=== PATIENT | female | born 1945 | race Caucasian/White ===

== ENCOUNTER → 2018-07-23 | Outpatient (REF) | payer MEDICARE ==
[~2018-07-23] MED LIST: AMLODIPINE10 MG PO; AZITHROMYCIN250 MG PO; CIPROFLOXACN500 MG PO; COZAAR50 MG OR; FLEXERIL PO; GLUCOPHAGE500 MG OR; HYDROCHLOROT25 MG OR; KETOROLAC60 MG/2 ML IM; LOPID600 MG OR; LORTAB 7.57.5 MG PO; LORTAB5 OR; NAPROSYN500 MG PO; NEXIUM40 M1 OR; OMEPRAZOLE20 MG OR; PRAVASTATIN20 MG PO; PROCARDIA XL30 MG OR; PROVENTIL0.083 % IN; ROCEPHIN 1 GM1 GM IM; ULTRAM50 M1 PO; ZOFRAN8 MG OR
[2018-07-23 09:25] LABS: HEMATOCRIT 40.7 % (37.0-47.0); HEMOGLOBIN 13.3 g/dl (12.0-16.0); IMMATURE GRANULOCYTES 0.3 % (0.0-5.0); MEAN CORPUSCULAR HGB 31.4 pG CALC (26.0-32.0); MEAN CORPUSCULAR HGB CONC 32.7 g/L CALC (32.0-36.0); NEUT# 4.9 thou/uL (2.00-7.15); RED BLOOD COUNT 4.24 mill/uL (4.20-5.60)
[2018-07-23 09:51] LABS: ALBUMIN 3.9 g/dL (3.2-5.0); ALKALINE PHOSPHATASE 82 u/l (38-126); ANION GAP 13 (6-22 (CALC)); BILIRUBIN, TOTAL 0.3 mg/dL (0.0-1.4); BUN 17 mg/dL (8-23); BUN/CREATININE RATIO 20 (12-20 (CALC)); CARBON DIOXIDE 26 mmol/l (22-30); CHLORIDE 109 mmol/l (95-108); CREATININE 0.9 mg/dL (0.5-1.0); GFR > 60 ML/MIN (>=60 (CALC)); GFR FOR AFR.AMER. > 60 ML/MIN (>=60 (CALC)); INTERNATIONAL NORMALIZED RATIO 0.9 RATIO (0.7-1.3); MAGNESIUM 1.7 mg/dL (1.6-2.3); PROTHROMBIN TIME 9.8 SECONDS (9.0-12.5); SGOT/AST 13 u/l (9-36); SODIUM 143 mmol/l (137-146); TOTAL PROTEIN 6.6 g/dL (6.3-8.2)
== END | disposition home or self-care (01) ==
LOC: LAB 07:43
PROVIDERS: ATTEND Internal Medicine Cardiovascular Disease
DX: I25.119 Atherosclerotic heart disease of native coronary artery with unspecified angina pectoris (principal); I10 Essential (primary) hypertension; R05 Cough; R09.89 Other specified symptoms and signs involving the circulatory and respiratory systems; E11.41 Type 2 diabetes mellitus with diabetic mononeuropathy; I25.5 Ischemic cardiomyopathy; E55.9 Vitamin D deficiency, unspecified; E78.00 Pure hypercholesterolemia, unspecified

== ENCOUNTER 2018-11-01 12:32 | Emergency (ER) | payer MEDICARE ==
[~2018-11-01] VITALS: Ht 161.3 cm; Wt 90.0 kg
[~2018-11-01 12:32] MED LIST changes: -HYDROCHLOROT25 MG OR; +HYDROCHLOROT25 MG PO; -OMEPRAZOLE20 MG OR; +OMEPRAZOLE20 MG PO
[2018-11-01] MEDS ORDERED: CARVEDILOL3.125 MG PO (13:59)
[2018-11-01] MEDS ORDERED: ENTRESTO 97-1031 TAB PO (13:59)
[2018-11-01] MEDS ORDERED: PRAVASTATIN20 MG PO (14:00)
[2018-11-01] MEDS ORDERED: METFORMIN500 MG PO (14:02)
[2018-11-01] MEDS ORDERED: OXYBUTYNIN5 M1 PO (14:02)
[2018-11-01] MEDS ORDERED: FISH OIL1 CAP PO (14:04)
[2018-11-01] MEDS ORDERED: VASCEPA1 GM PO (14:04)
[2018-11-01 14:56] LABS: HEMATOCRIT 43.5 % (37.0-47.0); HEMOGLOBIN 14.3 g/dl (12.0-16.0); IMMATURE GRANULOCYTES 0.4 % (0.0-5.0); MEAN CELL VOLUME 94.4 fL CALC (80.0-100.0); MEAN CORPUSCULAR HGB CONC 32.9 g/L CALC (32.0-36.0); NEUT# 6.59 thou/uL (2.00-7.15); RED BLOOD COUNT 4.61 mill/uL (4.20-5.60); RED CELL DISTRI WIDTH 12.5 % (11.5-15.5)
[2018-11-01 15:05] LABS: URINE BILIRUBIN - DIPSTICK NEGATIVE (NEGATIVE); URINE BLOOD DIPSTICK TRACE-LYSED (NEGATIVE); URINE COLOR YELLOW; URINE GLUCOSE - DIPSTICK NEGATIVE (NEGATIVE); URINE KETONE NEGATIVE (NEGATIVE); URINE NITRITE - DIPSTICK NEGATIVE (Negative); URINE PROTEIN - DIPSTICK TRACE mg/dL (NEG-TRACE); URINE UROBILINOGEN - DIPSTICK 0.2 E.U./dL (0.2)
[2018-11-01 15:09] LABS: URINE LEUK ESTERASE SMALL (NEGATIVE)
[2018-11-01 15:14] LABS: ALBUMIN 3.9 g/dL (3.2-5.0); ALKALINE PHOSPHATASE 70 u/l (38-126); ANION GAP 15 (6-22 (CALC)); BILIRUBIN, TOTAL 0.5 mg/dL (0.0-1.4); BUN 13 mg/dL (8-23); BUN/CREATININE RATIO 14 (12-20 (CALC)); CARBON DIOXIDE 24 mmol/l (22-30); CHLORIDE 105 mmol/l (95-108); CREATININE 0.9 mg/dL (0.5-1.0); GFR > 60 ML/MIN (>=60 (CALC)); GFR FOR AFR.AMER. > 60 ML/MIN (>=60 (CALC)); LIPASE 69 u/l (23-300); POTASSIUM 3.6 mmol/l (3.5-5.1); SGOT/AST 12 u/l (9-36); SODIUM 140 mmol/l (137-146); TOTAL PROTEIN 6.6 g/dL (6.3-8.2)
[2018-11-01 15:19] LABS: URINE RBC 0-2 RBC/hpf (0-5); URINE SQUAMOUS EPITHELIAL CELL FEW EPI/hpf (0-FEW)
[2018-11-01 18:22] VITALS: BP 127/76
[2018-11-01] MEDS ORDERED: KEFLEX500 M1 PO (18:37)
== END 2018-11-01 18:40 | disposition home or self-care (01) ==
LOC: ED 12:32
PROVIDERS: Emergency Medicine
DX: R10.11 Right upper quadrant pain (principal); R10.31 Right lower quadrant pain; I48.91 Unspecified atrial fibrillation; F17.210 Nicotine dependence, cigarettes, uncomplicated; I10 Essential (primary) hypertension; K21.9 Gastro-esophageal reflux disease without esophagitis; E11.9 Type 2 diabetes mellitus without complications; Z79.84 Long term (current) use of oral hypoglycemic drugs

== ENCOUNTER 2019-02-17 08:23 | Day surgery (SDC) | payer MEDICARE ==
[~2019-02-17] VITALS: Ht 165.1 cm; Wt 77.6 kg
[~2019-02-17 08:23] MED LIST changes: +B121000 MCG PO; +CARVEDILOL3.125 MG PO; +ENTRESTO 97-1031 TAB PO; +FISH OIL1 CAP PO; +GLUCOPHAGE500 MG PO; +KEFLEX500 M1 PO; +METFORMIN500 MG PO; +OXYBUTYNIN5 M1 PO; +TRIAMCINOLONE0.025 % EX; +VASCEPA1 GM PO; +VENTOLIN HFA IN
[2019-02-17 08:55] VITALS: BP 155/88
[2019-02-17] MEDS ORDERED: FISH OIL1000 MG PO (11:20)
[2019-02-18] MEDS ORDERED: LOPRESSOR 550 MG/TAB PO (10:17)
== END 2019-02-17 10:45 | disposition other institution (70) ==
LOC: ENDO 08:23
PROVIDERS: ATTEND Surgery
DX: R19.5 Other fecal abnormalities (principal); B37.0 Candidal stomatitis; Z53.8 Procedure and treatment not carried out for other reasons; I48.2 Chronic atrial fibrillation

== ENCOUNTER 2019-02-17 10:49 | Observation (INO) | payer MEDICARE ==
[~2019-02-17] VITALS: Ht 165.1 cm; Wt 77.3 kg
[2019-02-17] VITALS (17 sets, daily range): BP systolic 103–168; BP diastolic 47–98
--- NOTE | 2019-02-17 10:59 | NUR ---
PACU STRETCHER TO ER ROOM 10, TO BED
--- NOTE | 2019-02-17 11:08 | NUR ---
ADMINISTERED CARDIZEM 10MG SLOW IVP NO NOTABLE RHYTHM CHANGE. PT TOLERATED WELL. ASSISTED ONTO BEDPAN, OBTAINED CLEAR YELLOW URINE, IVF BOLUS INFUSING FROM OUTPATIENT.
[2019-02-17 11:18] LABS: HEMATOCRIT 45.7 % (37.0-47.0); HEMOGLOBIN 14.8 g/dl (12.0-16.0); IMMATURE GRANULOCYTES 0.3 % (0.0-5.0); MEAN CELL VOLUME 95.8 fL CALC (80.0-100.0); MEAN CORPUSCULAR HGB CONC 32.4 g/L CALC (32.0-36.0); NEUT# 5.75 thou/uL (2.00-7.15); RED BLOOD COUNT 4.77 mill/uL (4.20-5.60); RED CELL DISTRI WIDTH 13.1 % (11.5-15.5)
[2019-02-17] MEDS ORDERED: FISH OIL1000 MG PO (11:20)
--- NOTE | 2019-02-17 11:22 | NUR ---
HR 128 AFTER CARDIZEM 10MG SLOW IVP X2. DENIES CP OR SOB. BP 187/97. SKIN PWD. FAMILY AT BEDSIDE
[2019-02-17 12:05] LABS: ANION GAP 16 (6-22 (CALC)); BUN 12 mg/dL (8-23); BUN/CREATININE RATIO 18 (12-20 (CALC)); CARBON DIOXIDE 20 mmol/l (22-30); CHLORIDE 112 mmol/l (95-108); CREATININE 0.7 mg/dL (0.5-1.0); GFR > 60 ML/MIN (>=60 (CALC)); GFR FOR AFR.AMER. > 60 ML/MIN (>=60 (CALC)); POTASSIUM 3.9 mmol/l (3.5-5.1); SODIUM 144 mmol/l (137-146)
--- NOTE | 2019-02-17 12:11 | NUR ---
PT SITTING UP IN BED IN NO DISTRESS, VSS. ON CONT IV CARDIZEM GTT @15MCG/GR. FAMILY AT BEDSIDE.NO RESP DISTRESS OR SOB, DENIES CP
--- NOTE | 2019-02-17 12:33 | NUR ---
SBAR PRINTED TO FLOOR
--- NOTE | 2019-02-17 13:11 | NUR ---
PT RESTING RT SIDE LYING, PT DENIES CP OR SOB. AFIB RVR @101. CONTINUOUS CARDIAC MONITORING
--- NOTE | 2019-02-17 13:15 | NUR ---
REPORT CALLED TO JAKE HOLLAND RN ICU
--- NOTE | 2019-02-17 13:30 | NUR ---
PT TRANSPORTED TO ICU VIA STRETCHER ON TRIALS MANAGER IN NO DISTRESS
--- NOTE | 2019-02-17 13:45 | NUR ---
PT ADMITTED TO ICU BED 5 VIA STRECTHER FROM ER. PT ABLE TO STAND OFF STRETCHER AND AMBULATE TO BSC, CONTINENT OF 150 ML CLEAR YELLOW URINE AND SMALL LOOSE STOOL, THEN TRANSFERRED SELF INTO BED WITH STEADY GAIT, ALL MONITORING EQUIPMENT EXPLAINED PRIOR TO APPICATION, LUNGS ARE CLEAR WITH NO SOB OR DISTRESS NOTED, PT ADMITTED 1 PPD CIGERETTE SMOKER FOR 50+ YEARS, ABD SOFT AND BS ACTIVE WITH PT HAVING PREPPED FOR EGD AND COLONSCOPY LAST PM ( WAS HERE FOR THAT PROCEDURE THIS AM AND WHEN MONITOR ATTACHED PT FOUND TO BE IN AFIB WITH RVR SO PROCEDURE WAS CANCELLED AND PT WAS TAKEN TO ER) PT COMPLAINS OF SOME ABD TENDERNESS RELATED TO FREQUENT STOOLS LAST PM AFTER PREP. 20G IV ACCESS INTACT IN RFA WITH GOOD ASPIRATE NOTED AND CARDIZEM GTT INFUSING AT 15MG/HR (INITIATED IN ER) AND NS AT KVO, TELE READIN AFIB RATE 90-110'S BP STABLE PT SLIGHTLY FEBRILE WITH TEMP 99.2 TYMPANICALLY. SKIN IS WARM DRY AND INTACT WITH NO BREAKDOWN NOTED, PT STATES SHE HAS UPPER AND LOWER DENTURES BUT THAT THEY ARE AT HOME AND SHE DOESN'T HAVE TO HAVE THEM. COMFORT MEASURES PROVIDED AND ORIENTED TO ROOM AND UNIT, SAFETY MEASURES INTRODUCED, CALL SHINE WITHIN REACH, WILL CONTINUE TO MONITOR.
--- NOTE | 2019-02-17 15:30 | NUR ---
PT RESTING PROVIDED WITH MEAL AND TOLERATED INTAKE WELL, DENIES N/V, COMPLAINTS OF MILD HEADACHE, AND REQUESTING A NICOTINE PATCH. COMFORT MEASURES PROVIDED, WILL CONTINUE TO MONITOR.
--- NOTE | 2019-02-17 16:03 | NUR ---
PT CONVERTED TO SR WITH FREQUENT REGULAR PAC'S AND SOME PVC'S WELL, PT OFFERS NO COMPLAINTS.
--- NOTE | 2019-02-17 16:55 | NUR ---
R.T. AT BEDSIDE EKG COMPLETED FOR CONVERSION, WILL WEAN CARDIZEM TOLERATED.
--- NOTE | 2019-02-17 17:04 | NUR ---
VISITORS AT BEDSIDE, CARDIZEM GTT DECREASED WILL MONITOR TOLERANCE.
--- NOTE | 2019-02-17 17:45 | NUR ---
SET UP ASSIST PROVIDED FOR PM MEAL, PT UP SITTING ON EDGE OF BED INDEPENDENTLY, TOLERATED ACTIVITY WELL, CALL SHINE WITHIN REACH.
--- NOTE | 2019-02-17 18:20 | NUR ---
APETITE GOOD EAT 100% OF PM MEAL WITHOUT INCIDENT, TELE CONTINUES TO READ SR RATE IN THE 80'S WTH PAC/PVC'S, BP STABLE, WILL CONTINIE TO MONITOR.
--- NOTE | 2019-02-17 18:26 | NUR ---
CONTINUED WEANING OF CARDIZEM TOLERATED WELL, CALL SHINE WITHIN REACH, PT STATES HEADACHE MUCH IMPROVED SINCE TYLENOL ADMINSITRATION EARLIER, WILL CONTINUE TO MONITOR
--- NOTE | 2019-02-17 19:05 | NUR ---
awake. denies c/o. apprentice embalmer shows sinus rhythm pacs pvcs. #22 rfa. cardizem gtt infusing @ 5mg/hr ns infusing @ 20cchr. po fluids taken well. voids per bsc. fall precautions cont.
--- NOTE | 2019-02-17 22:00 | NUR ---
eyes closed. no distress. alarm security or surveillance monitor shows sinus rhythm pacs pvcs.
--- NOTE | 2019-02-17 22:15 | NUR ---
tylenol 650mg given per request for h/d.
[2019-02-18] VITALS (7 sets, daily range): BP systolic 153–185; BP diastolic 57–86
--- NOTE | 2019-02-18 00:01 | NUR ---
eyes closed. no acute distress.
--- NOTE | 2019-02-18 02:45 | NUR ---
tylenol 650mg po per request for h/a.
--- NOTE | 2019-02-18 04:55 | NUR ---
lab here. blood drawn.
[2019-02-18 05:25] LABS: ALBUMIN 4.2 g/dL (3.2-5.0); ALKALINE PHOSPHATASE 65 u/l (38-126); AMYLASE 44 u/l (30-110); ANION GAP 16 (6-22 (CALC)); BUN 15 mg/dL (8-23); BUN/CREATININE RATIO 21 (12-20 (CALC)); CARBON DIOXIDE 21 mmol/l (22-30); CHLORIDE 110 mmol/l (95-108); CREATININE 0.7 mg/dL (0.5-1.0); GFR > 60 ML/MIN (>=60 (CALC)); GFR FOR AFR.AMER. > 60 ML/MIN (>=60 (CALC)); LIPASE 138 u/l (23-300); MAGNESIUM 1.8 mg/dL (1.6-2.3); SGOT/AST 14 u/l (9-36); SODIUM 143 mmol/l (137-146); TOTAL PROTEIN 6.8 g/dL (6.3-8.2)
[2019-02-18 05:27] LABS: HEMATOCRIT 42.8 % (37.0-47.0); HEMOGLOBIN 13.8 g/dl (12.0-16.0); IMMATURE GRANULOCYTES 0.2 % (0.0-5.0); MEAN CELL VOLUME 95.3 fL CALC (80.0-100.0); MEAN CORPUSCULAR HGB 30.7 pG CALC (26.0-32.0); MEAN CORPUSCULAR HGB CONC 32.2 g/L CALC (32.0-36.0); NEUT# 4.09 thou/uL (2.00-7.15); RED BLOOD COUNT 4.49 mill/uL (4.20-5.60)
[2019-02-18 05:33] LABS: BILIRUBIN, TOTAL 0.6 mg/dL (0.0-1.4)
--- NOTE | 2019-02-18 07:15 | NUR ---
PT RESTING IN BED ALERT AND ORIENTED, COMPLAINTS OF CONTINUES HEADACHE, AM ASSESSMENT COMPLETED SEE INTERVENTIONS, TELE CONTINUES READING SR WITH PAC/PVC'S RATE IN THE 80'S B/P ELEVATED BUT PT STATES THAT "BETWEEN THE HEADACHE, NO CIGARETTES AND JUST BEING IN THE HOSPITAL, I'M NOT SUPRISED ITS HIGHER" COMFORT MEASURES PROVIDED, WILL MEDICATE FOR COMPLAINTS OF HEADACHE ORDERED. SAFETY MEASURES REINFORCED, CALL SHINE WITHIN REACH, WILL CONTINUE TO MONITOR.
--- NOTE | 2019-02-18 07:40 | NUR ---
MEDICTAED ORDERED, TOOK AM MEDICATIONS W/O INCIDENT, COMFORT MEASURES PROVIDED, WILL CONTINUE TO MONITOR.
--- NOTE | 2019-02-18 09:00 | NUR ---
PT RESTING IN BED, OFFERS NO NEW COMPLAINTS, TOLERATED AM MEAL WITHOUT INCIDENT, CALL SHINE WITHIN REACH, WILL CONTINUE TO MONITOR
--- NOTE | 2019-02-18 09:55 | NUR ---
IN TO SEE PATIENT, PLAN OF CARE DISCUSSED INCLUDING D/C AND INSTRUCTED PT TO FOLLOW UP WITH HER WARDSPERSON IN NEXT 1-2 WEEKS, PT VERBALIZES UNDERSTANDING.
[2019-02-18] MEDS ORDERED: LOPRESSOR 550 MG/TAB PO (10:17)
--- NOTE | 2019-02-18 10:38 | NUR ---
Discharge instructions given. Patient verbalizes understanding of same. Discharged in stable condition via Wheelchair to Home with family. All belongings sent with pt. HOME MEDICATION OF ENTRESTO SENT WITH PATIENT WELL.
== END 2019-02-18 10:37 | disposition home or self-care (01) ==
LOC: ED 10:49 → ED-I 12:00 → ED 12:31 → ICU 12:32
PROVIDERS: Family Medicine; ADMIT Internal Medicine Nephrology; ATTEND Internal Medicine Nephrology
DX: I48.0 Paroxysmal atrial fibrillation (principal); I10 Essential (primary) hypertension; E11.9 Type 2 diabetes mellitus without complications; J44.9 Chronic obstructive pulmonary disease, unspecified; K21.9 Gastro-esophageal reflux disease without esophagitis; I25.10 Atherosclerotic heart disease of native coronary artery without angina pectoris; F41.9 Anxiety disorder, unspecified; R32 Unspecified urinary incontinence; F17.200 Nicotine dependence, unspecified, uncomplicated; Z79.01 Long term (current) use of anticoagulants; Z79.84 Long term (current) use of oral hypoglycemic drugs
CPT/HCPCS: J1650

== ENCOUNTER 2021-12-03 11:37 | Emergency (ER) | payer MEDICARE ==
[~2021-12-03] VITALS: Ht 165.1 cm; Wt 78.0 kg
[2021-12-03] VITALS (16 sets, daily range): BP systolic 103–134; BP diastolic 55–76
[~2021-12-03 11:37] MED LIST changes: +FISH OIL1000 MG PO; +LOPRESSOR 550 MG/TAB PO
[2021-12-03] MEDS ORDERED: TIZANIDINE HYDRO4 M1 PO (12:10)
[2021-12-03] MEDS ORDERED: TRAMADOL HCL50 MG PO (12:10)
[2021-12-03] MEDS ORDERED: CLONAZEPAM1 MG PO (12:11)
[2021-12-03] MEDS ORDERED: BUPROPION150 M3 PO ×2 (12:11→12:13)
[2021-12-03] MEDS ORDERED: GABAPENTIN100 MG PO (12:11)
[2021-12-03] MEDS ORDERED: FLUOXETINE20 MG PO (12:12)
[2021-12-03] MEDS ORDERED: HYDROXYCHLOR200 M1 PO (12:12)
[2021-12-03] MEDS ORDERED: LISINOPRIL10 MG PO (12:13)
[2021-12-03] MEDS ORDERED: AMITRIPTYLINE H10 MG PO (12:14)
[2021-12-03 12:51] LABS: IMMATURE GRANULOCYTES 0.3 % (0.0-5.0); MEAN CELL VOLUME 97.3 fL CALC (80.0-100.0); MEAN CORPUSCULAR HGB 30.2 pG CALC (26.0-32.0); MEAN CORPUSCULAR HGB CONC 31.1 g/dL CAL (32.0-36.0); NEUT# 12.18 thou/uL (2.00-7.15); RED BLOOD COUNT 3.64 mill/uL (4.20-5.60); RED CELL DISTRI WIDTH 14.7 % (11.5-15.5)
[2021-12-03 12:59] LABS: HEMATOCRIT 35.4 % (37.0-47.0)
[2021-12-03 13:37] LABS: BILIRUBIN, TOTAL 0.3 mg/dL (0.0-1.4); CREATININE 1.9 mg/dL (0.5-1.0); POTASSIUM 4.5 mmol/l (3.5-5.1); TOTAL PROTEIN 6.2 g/dL (6.3-8.2)
[2021-12-03 14:41] LABS: INTERNATIONAL NORMALIZED RATIO 1.4 RATIO (0.7-1.3); PROTHROMBIN TIME 13.9 SECONDS (9.0-12.5)
[2021-12-03 16:23] LABS: URINE BILIRUBIN - DIPSTICK NEGATIVE (NEGATIVE); URINE BLOOD DIPSTICK MODERATE (NEGATIVE); URINE COLOR YELLOW; URINE GLUCOSE - DIPSTICK NEGATIVE (NEGATIVE); URINE KETONE TRACE mg/dL (NEGATIVE); URINE LEUK ESTERASE TRACE (NEGATIVE); URINE PH 5.5 (4.5-8.0); URINE PROTEIN - DIPSTICK 100 mg/dL (NEG-TRACE); URINE SPECIFIC GRAVITY >=1.030; URINE UROBILINOGEN - DIPSTICK 0.2 E.U./dL (0.2)
[2021-12-03 16:31] LABS: URINE NITRITE - DIPSTICK POSITIVE (Negative)
[2021-12-03 16:38] LABS: URINE BACTERIA MANY hpf; URINE FINE GRAN CAST RARE lpf; URINE SQUAMOUS EPITHELIAL CELL FEW EPI/hpf (0-FEW); URINE WBC 20-50 WBC/hpf (0-5)
--- NOTE | 2021-12-05 10:12 | NUR ---
PATIENT WAS TRANSFERRED TO [facility] ON 12/03. RECEIVED CULTURE AND SENSITIVITY BACK FOR URINE CULTURE TODAY, 12/05. FAXED C&S TO [facility] AT THE [facility] AT
== END 2021-12-03 16:03 | disposition short-term general hospital (02) ==
LOC: ED 11:37
PROVIDERS: Emergency Medicine
DX: R79.89 Other specified abnormal findings of blood chemistry (principal); B37.2 Candidiasis of skin and nail; B37.0 Candidal stomatitis; R53.83 Other fatigue; I48.91 Unspecified atrial fibrillation; I10 Essential (primary) hypertension; E11.9 Type 2 diabetes mellitus without complications; K21.9 Gastro-esophageal reflux disease without esophagitis; F17.210 Nicotine dependence, cigarettes, uncomplicated; Z20.822 Contact with and (suspected) exposure to COVID-19
CPT/HCPCS: J1644

== ENCOUNTER 2022-04-19 15:53 | Inpatient (IN) | payer MEDICARE ==
[2022-04-19] VITALS (45 sets, daily range): BP systolic 83–134; BP diastolic 29–54
[~2022-04-19] VITALS: Ht 165.1 cm; Wt 79.0 kg
[~2022-04-19 15:53] MED LIST changes: +AMITRIPTYLINE H10 MG PO; +BUPROPION150 M3 PO; +CLONAZEPAM1 MG PO; +FLUOXETINE20 MG PO; +GABAPENTIN600 MG PO; +HYDROXYCHLOR200 M1 PO; +LISINOPRIL10 MG PO; +TIZANIDINE4 MG PO; +TRAMADOL HCL50 MG PO
[2022-04-19 16:11] LABS: HEMATOCRIT 33.1 % (37.0-47.0); IMMATURE GRANULOCYTES 0.4 % (0.0-5.0); MEAN CELL VOLUME 87.1 fL CALC (80.0-100.0); MEAN CORPUSCULAR HGB 26.3 pG CALC (26.0-32.0); MEAN CORPUSCULAR HGB CONC 30.2 g/dL CAL (32.0-36.0); NEUT# 23.05 thou/uL (2.00-7.15); RED BLOOD COUNT 3.8 mill/uL (4.20-5.60); RED CELL DISTRI WIDTH 20.6 % (11.5-15.5)
[2022-04-19 16:41] LABS: ALBUMIN 3.8 g/dL (3.2-5.0); ALKALINE PHOSPHATASE 79 u/l (38-126); ANION GAP 12 (6-22 (CALC)); BUN 21 mg/dL (8-23); BUN/CREATININE RATIO 14 (12-20 (CALC)); CARBON DIOXIDE 22 mmol/l (22-30); CHLORIDE 105 mmol/l (95-108); CREATININE 1.5 mg/dL (0.5-1.0); GFR FOR AFR.AMER. 41 ML/MIN (>=60 (CALC)); GFR OTHER RACES 34 ML/MIN (>=60 (CALC)); POTASSIUM 4.2 mmol/l (3.5-5.1); SGOT/AST 20 u/l (9-36); SODIUM 135 mmol/l (137-146); TOTAL PROTEIN 6.9 g/dL (6.3-8.2)
[2022-04-19 16:47] LABS: BILIRUBIN, TOTAL 0.3 mg/dL (0.0-1.4)
[2022-04-19 17:21] LABS: URINE BILIRUBIN - DIPSTICK NEGATIVE (NEGATIVE); URINE BLOOD DIPSTICK SMALL (NEGATIVE); URINE COLOR YELLOW; URINE GLUCOSE - DIPSTICK NEGATIVE (NEGATIVE); URINE KETONE NEGATIVE (NEGATIVE); URINE LEUK ESTERASE TRACE (NEGATIVE); URINE PROTEIN - DIPSTICK TRACE mg/dL (NEG-TRACE); URINE UROBILINOGEN - DIPSTICK 0.2 E.U./dL (0.2)
[2022-04-19 17:29] LABS: URINE NITRITE - DIPSTICK NEGATIVE (Negative)
[2022-04-19 17:38] LABS: URINE SQUAMOUS EPITHELIAL CELL FEW EPI/hpf (0-FEW)
[2022-04-20 05:12] LABS: HEMATOCRIT 28.6 % (37.0-47.0); HEMOGLOBIN 8.5 g/dl (12.0-16.0); IMMATURE GRANULOCYTES 0.3 % (0.0-5.0); MEAN CELL VOLUME 88.3 fL CALC (80.0-100.0); MEAN CORPUSCULAR HGB 26.2 pG CALC (26.0-32.0); MEAN CORPUSCULAR HGB CONC 29.7 g/dL CAL (32.0-36.0); NEUT# 22.37 thou/uL (2.00-7.15); RED BLOOD COUNT 3.24 mill/uL (4.20-5.60); RED CELL DISTRI WIDTH 21.4 % (11.5-15.5)
[2022-04-20 05:29] LABS: BILIRUBIN, TOTAL 0.2 mg/dL (0.0-1.4); CREATININE 1.1 mg/dL (0.5-1.0); MAGNESIUM 2.1 mg/dL (1.6-2.3)
[2022-04-20 05:37] LABS: ALBUMIN 2.8 g/dL (3.2-5.0); TOTAL PROTEIN 5.3 g/dL (6.3-8.2)
[2022-04-20] MEDS ORDERED: LASIX 20 MG TAB20 MG PO (07:05)
[2022-04-20] MEDS ORDERED: ELIQUIS5 MG PO (07:05)
[2022-04-20] MEDS ORDERED: ALDACTONE25 MG PO (07:05)
[2022-04-20] MEDS ORDERED: METFORMIN500 M2 PO (07:05)
[2022-04-20] MEDS ORDERED: VASCEPA1 GM PO (07:05)
[2022-04-20] MEDS ORDERED: OMEPRAZOLE DR40 MG PO (07:06)
[2022-04-20] MEDS ORDERED: ENTRESTO 97-1031 TAB PO (07:06)
[2022-04-20] MEDS ORDERED: PRAVASTATIN20 MG PO (07:06)
[2022-04-20 07:12] VITALS: BP 123/49
[2022-04-20 16:22] VITALS: BP 140/56
[2022-04-20 18:35] VITALS: BP 126/48
[2022-04-21 00:09] VITALS: BP 145/66
[2022-04-21 04:37] VITALS: BP 129/56
[2022-04-21 05:05] LABS: HEMATOCRIT 28.8 % (37.0-47.0); HEMOGLOBIN 8.4 g/dl (12.0-16.0); IMMATURE GRANULOCYTES 0.5 % (0.0-5.0); MEAN CELL VOLUME 88.3 fL CALC (80.0-100.0); MEAN CORPUSCULAR HGB 25.8 pG CALC (26.0-32.0); MEAN CORPUSCULAR HGB CONC 29.2 g/dL CAL (32.0-36.0); NEUT# 17.79 thou/uL (2.00-7.15); RED BLOOD COUNT 3.26 mill/uL (4.20-5.60)
[2022-04-21 05:32] LABS: CREATININE 1.1 mg/dL (0.5-1.0); MAGNESIUM 2.4 mg/dL (1.6-2.3); POTASSIUM 4.2 mmol/l (3.5-5.1)
[2022-04-21 06:43] VITALS: BP 139/56
[2022-04-21 11:18] VITALS: BP 151/71
[2022-04-21 11:55] VITALS: BP 138/69
[2022-04-21 13:16] VITALS: BP 148/62
== END 2022-04-21 17:15 | DRG 871 ==
LOC: ED 15:53 → ED-I 19:55 → MS2 19:59 → ED 19:59 → MS2 04-20 10:39 → ICU 04-21 14:02
PROVIDERS: Family Medicine; ADMIT Internal Medicine; ATTEND Internal Medicine
PROC: 05HM33Z Insertion of Infusion Device into Right Internal Jugular Vein, Percutaneous Approach (ICD-10-PCS; principal; 2022-04-21)
PROC: 30243K1 Transfusion of Nonautologous Frozen Plasma into Central Vein, Percutaneous Approach (ICD-10-PCS; 2022-04-21)
PROC: 30243K1 Transfusion of Nonautologous Frozen Plasma into Central Vein, Percutaneous Approach (ICD-10-PCS; 2022-04-21)
DX: A41.9 Sepsis, unspecified organism (principal); J18.9 Pneumonia, unspecified organism; N17.9 Acute kidney failure, unspecified; J44.0 Chronic obstructive pulmonary disease with (acute) lower respiratory infection; N39.0 Urinary tract infection, site not specified; I76 Septic arterial embolism; I66.12 Occlusion and stenosis of left anterior cerebral artery; R29.704 NIHSS score 4; R65.20 Severe sepsis without septic shock; I11.0 Hypertensive heart disease with heart failure; I50.9 Heart failure, unspecified; E11.9 Type 2 diabetes mellitus without complications; I48.91 Unspecified atrial fibrillation; F41.9 Anxiety disorder, unspecified; F32.A Depression, unspecified; F17.210 Nicotine dependence, cigarettes, uncomplicated; K21.9 Gastro-esophageal reflux disease without esophagitis; K59.00 Constipation, unspecified; Z79.01 Long term (current) use of anticoagulants; Z20.822 Contact with and (suspected) exposure to COVID-19
CPT/HCPCS: G0378; Q3014; Q9967

== ENCOUNTER 2023-10-20 11:03 | Inpatient (IN) | payer MEDICARE ==
[2023-10-20] VITALS (47 sets, daily range): BP systolic 94–159; BP diastolic 39–98
[~2023-10-20] VITALS: Ht 165.1 cm; Wt 71.4 kg
[~2023-10-20 11:03] MED LIST changes: +ALDACTONE25 MG PO; +ELIQUIS5 MG PO; +LASIX 20 MG TAB20 MG PO; +METFORMIN500 M2 PO; +OMEPRAZOLE DR40 MG PO; +VANCOMYCIN HCL125 M1 PO
--- NOTE | 2023-10-20 11:03 | NUR ---
PT TO ROOM 10 VIA EMS.
--- NOTE | 2023-10-20 11:15 | NUR ---
PERICARE PROVIDED FOR INCONTINENCE OF BOWELS. STRAIGHT CATH ALSO OBTAINED AT THIS TIME, URINE IS CLOUDY AND ODOROUS.
--- NOTE | 2023-10-20 11:37 | NUR ---
PT MEDICATED ORDERED.
[2023-10-20 11:45] LABS: BASO% 0.4 % (0-3); EOS% 1.4 % (0-8); IMMATURE GRANULOCYTES 0.2 % (0.0-5.0); LYMPH% 17.2 % (15-41); MEAN CORPUSCULAR HGB 28.2 pG CALC (26.0-32.0); MEAN CORPUSCULAR HGB CONC 30.9 g/dL CAL (32.0-36.0); MONO% 8.2 % (2-13); NEUT# 8.3 thou/uL (2.00-7.15); NEUT% 72.6 % (42-76); RED BLOOD COUNT 3.83 mill/uL (4.20-5.60); RED CELL DISTRI WIDTH 16.3 % (11.5-15.5)
[2023-10-20 11:48] LABS: URINE BILIRUBIN - DIPSTICK Negative (NEGATIVE); URINE BLOOD DIPSTICK Small (NEGATIVE); URINE COLOR Yellow; URINE GLUCOSE - DIPSTICK Negative (NEGATIVE); URINE KETONE Negative (NEGATIVE); URINE LEUK ESTERASE Large (NEGATIVE); URINE NITRITE - DIPSTICK Positive (Negative); URINE PROTEIN - DIPSTICK 30 mg/dL (NEG-TRACE); URINE SPECIFIC GRAVITY 1.015; URINE UROBILINOGEN - DIPSTICK 0.2 E.U./dL (0.2)
[2023-10-20 11:49] LABS: URINE BACTERIA MANY hpf; URINE RBC 0-2 RBC/hpf (0-5); URINE WBC 50-100 WBC/hpf (0-5)
[2023-10-20 11:52] LABS: HEMOGLOBIN 10.8 g/dl (12.0-16.0); MEAN CELL VOLUME 91.4 fL CALC (80.0-100.0)
[2023-10-20 12:06] LABS: INTERNATIONAL NORMALIZED RATIO 1.1 RATIO (0.7-1.3); PROTHROMBIN TIME 11.3 SECONDS (9.0-12.5)
[2023-10-20] MEDS ORDERED: OXYBUTYNIN CHLOR5 M2 PR (12:06)
[2023-10-20] MEDS ORDERED: METOPROLOL TART50 MG PO (12:06)
[2023-10-20] MEDS ORDERED: BACLOFEN10 MG PO (12:07)
[2023-10-20] MEDS ORDERED: PROTONIX40 M2 PO (12:08)
[2023-10-20 12:21] LABS: ALKALINE PHOSPHATASE 69 u/l (38-126); BILIRUBIN, TOTAL 0.4 mg/dL (0.02-1.3); BUN 24 mg/dL (8-23); BUN/CREATININE RATIO 13 (12-20 (CALC)); CHLORIDE 110 mmol/l (95-108); CREATININE 1.9 mg/dL (0.5-1.0); ETHYL ALCOHOL 0 mg/dl (0-30); GFR FOR AFR.AMER. 31 ML/MIN (>=60 (CALC)); GFR OTHER RACES 26 ML/MIN (>=60 (CALC)); LIPASE 60 u/l (23-300); SGOT/AST 19 u/l (9-36); SODIUM 137 mmol/l (137-146)
[2023-10-20 12:22] LABS: POTASSIUM 4.3 mmol/l (3.5-5.1)
[2023-10-20 12:30] LABS: ALBUMIN 3.3 g/dL (3.2-5.0); ANION GAP 12 (6-22 (CALC)); CARBON DIOXIDE 19 mmol/l (22-30); TOTAL PROTEIN 5.9 g/dL (6.3-8.2)
--- NOTE | 2023-10-20 12:45 | NUR ---
PT RESTING IN BED. VSS. AWAITING LAB AND RADIOLOGY RESULTS.
[2023-10-20 12:51] LABS: TSH, 3RD GENERATION 1.26 uIU/mL (0.47 - 4.68)
--- NOTE | 2023-10-20 13:33 | NUR ---
VSS. WILL CONTINUE TO MONITOR.
--- NOTE | 2023-10-20 14:23 | NUR ---
VSS. WILL CONTINUE TO MONITOR
--- NOTE | 2023-10-20 15:38 | NUR ---
PT ADMITTED TO ICU, AWAITING BED PLACEMENT.
--- NOTE | 2023-10-20 16:19 | NUR ---
VSS. AWAITING ROOM ASSIGNMENT. WILL CONTINUE TO MONITOR
--- NOTE | 2023-10-20 17:00 | NUR ---
VSS. AWAITING ROOM ASSIGNMENT. WILL CONTINUE TO MONITOR
--- NOTE | 2023-10-20 18:20 | NUR ---
VSS. AWAITING ROOM ASSIGNMENT. WILL CONTINUE TO MONITOR
--- NOTE | 2023-10-20 19:10 | NUR ---
REPORT RECEIEVED FROM Ryne GARCIA RN
--- NOTE | 2023-10-20 19:20 | NUR ---
PATIENT UNABLE TO COMPLETE NIH SCALE, PATIENT REMAINS STUPOR. DOES NOT FOLLOW COMMANDS, DOES NOT RESPOND TO TOUCH ONLY PAINFUL STIMULI IN SOLES OF FEET. UNINTELLIGIBLE MOANING NOTED AT REST WITHOUT STIMULI FROM TOUCH, NOISE OR LIGHT.
--- NOTE | 2023-10-20 19:40 | NUR ---
REPORT GIVEN TO Anali ABDULLAHI RN
--- NOTE | 2023-10-20 23:05 | NUR ---
78 yr old white female admitted to icu6 per stretcher. transferred x3 to bed. bed weight obtained. pt verbally unresponsive. opens eyes with pain. vehicle monitor technician shows sinus reythm freq pacs pvcs. history obtained per er & old record. ivf began as ordered. pure wick cath placed.
[2023-10-21] VITALS (24 sets, daily range): BP systolic 117–165; BP diastolic 52–86
--- NOTE | 2023-10-21 02:00 | NUR ---
eyes closed. no apparent distress. awake overnight monitor shows sinus rhythm freq pacs pvcs.
--- NOTE | 2023-10-21 04:00 | NUR ---
eyes open @ times to pain. does not focus on this curriculum writer.
--- NOTE | 2023-10-21 06:00 | NUR ---
eyes closed. voided x1 per pure wick.
[2023-10-21 07:09] LABS: BASO% 0.1 % (0-3); HEMATOCRIT 33.9 % (37.0-47.0); HEMOGLOBIN 10.6 g/dl (12.0-16.0); IMMATURE GRANULOCYTES 0.3 % (0.0-5.0); LYMPH% 8.2 % (15-41); MEAN CELL VOLUME 89.7 fL CALC (80.0-100.0); MEAN CORPUSCULAR HGB CONC 31.3 g/dL CAL (32.0-36.0); NEUT# 11.75 thou/uL (2.00-7.15); NEUT% 85.4 % (42-76); RED BLOOD COUNT 3.78 mill/uL (4.20-5.60); RED CELL DISTRI WIDTH 16.3 % (11.5-15.5)
[2023-10-21 07:44] LABS: ALBUMIN 3.4 g/dL (3.2-5.0); BILIRUBIN, TOTAL 0.3 mg/dL (0.02-1.3); CREATININE 1.6 mg/dL (0.5-1.0); MAGNESIUM 1.6 mg/dL (1.6-2.3); POTASSIUM 4.5 mmol/l (3.5-5.1); TOTAL PROTEIN 5.8 g/dL (6.3-8.2)
[2023-10-21 07:50] LABS: CHOLESTEROL HDL RATIO 2.4 (<4.4 (CALC))
--- NOTE | 2023-10-21 08:00 | NUR ---
RECEIVED REPORT FROM MANUAL ARTS THERAPIST NURSE. PATIENT IS ALERT TO NAME ONLY, EYES OPEN TO TOUCH AND VERBAL STIMULI, PATIENT DOES NOT RESPOND TO COMMANDS, NON VERBAL, TELE MONITOR SHOWS SR WITH PACS AND PVCS, LUNG SOUNDS CLEAR IN ALL QUADRANTS, ACTIVE BOWEL SOUNDS, PURWICK IN PLACE, PERIPHERAL PULSES PALPABLE IN ALL FOUR EXTREMITES, PATIENT MOVES EXTREMITES ONLY TO PAIN, PUPILS SLUGGISH TO LIGHT, FLUIDS RUNNING
--- NOTE | 2023-10-21 08:10 | NUR ---
REMOVED EMS IV RIGHT AC 20 GAUGE, CATHETER TIP INTACT, NEW IV PLACED, 22 LEFT FOREARM, INFUSING FLUIDS
--- NOTE | 2023-10-21 10:00 | NUR ---
PATIENT REMAINS NON-VERBAL, PATIENT WILL LOOK AT SPEAKER WHEN NAME IS CALLED AND ARM IS TOUCHED, UNABLE TO GIVE PO MEDICATIONS DUE TO LACK OF RESPONSE, MD MADE AWARE
--- NOTE | 2023-10-21 10:30 | NUR ---
VERBAL ORDER TO TRANSFER PATIENT TO MED SURG AND SPEECH CONSULT
--- NOTE | 2023-10-21 12:00 | NUR ---
FAMILY AT BEDSIDE, PATIENT OPENS EYES SPONTANOUSLY TO VERBAL STIMULI, PATIENT REMAINS NON-VERBAL, IV FLUIDS INFUSING
--- NOTE | 2023-10-21 14:00 | NUR ---
PATIENT IS RESTING IN BED, RESPIRATIONS EVEN AND UNLABORED, TELE MONITOR SHOWS SINUS RHYTHM WITH PVCs/PACs, PATIENT REMAINS NON-VERBAL, DOES NOT FOLLOW COMMANDS, NO SIGNS OF DISTRESS NOTED
--- NOTE | 2023-10-21 15:00 | NUR ---
PATIENT HAS NOT VOIDED YET, MD MADE AWARE, BLADDER SCAN DONE, VISUALIZED 360ML, ORDER TO PLACE PASTOR PER MD, 16FR PASTOR INSERTED, DRAINING CLOUDY, YELLOW URINE
--- NOTE | 2023-10-21 15:15 | NUR ---
TELE NEURO CONSULT DONE
--- NOTE | 2023-10-21 16:00 | NUR ---
FAMILY AT BEDSIDE, PATIENT IS ALERT TO NAME ONLY, PATIENT REMAINS NON-VERBAL, DOES NOT FOLLOW COMMANDS, PASTOR DRAINING YELLOW CLOUDY URINE
--- NOTE | 2023-10-21 16:26 | NUR ---
MRI SCREENING DONE, AND DAUGHTER AT BEDSIDE TO ANSWER QUESTIONS IN REGARDS TO SCREENING.
[2023-10-21] MEDS ORDERED: NEURONTIN300 MG PO (16:49)
--- NOTE | 2023-10-21 18:00 | NUR ---
PATIENT IS ALERT TO NAME ONLY, LOOKS AT SPEAKER WHEN NAME IS CALLED, REMAINS NON-VERBAL, IV FLUIDS RUNNING
--- NOTE | 2023-10-21 19:45 | NUR ---
eyes open. looks @ then tracks this typewriter aligner throught room. remains nonverbal. court monitor shows sinus tach freq pacs pvcs. ivf infusing well per lfa site. bullock cath in place. urine yellow & pus-like. fall precautions & bed alarm conts.
--- NOTE | 2023-10-21 23:00 | NUR ---
calling out for water. speech garbled. hesitant when answering questions. sips of water taken without diff.
[2023-10-22] VITALS (15 sets, daily range): BP systolic 114–160; BP diastolic 43–106
--- NOTE | 2023-10-22 00:01 | NUR ---
sips of water taken without diff. bar captain shows sinus rhythm freq pvcs pacs.
--- NOTE | 2023-10-22 04:00 | NUR ---
awake. no apparent distress. compressor station operator shows sinus rhythm pacs pvcs.
--- NOTE | 2023-10-22 05:39 | NUR ---
has had short naps this shift. calling out "help me." water given. la well.
[2023-10-22 06:40] LABS: BASO% 0.2 % (0-3); HEMATOCRIT 28.5 % (37.0-47.0); IMMATURE GRANULOCYTES 0.3 % (0.0-5.0); LYMPH% 10.1 % (15-41); MEAN CELL VOLUME 91.3 fL CALC (80.0-100.0); MEAN CORPUSCULAR HGB 28.8 pG CALC (26.0-32.0); MEAN CORPUSCULAR HGB CONC 31.6 g/dL CAL (32.0-36.0); MONO% 8.7 % (2-13); NEUT# 14.61 thou/uL (2.00-7.15); NEUT% 80.7 % (42-76); RED BLOOD COUNT 3.12 mill/uL (4.20-5.60); RED CELL DISTRI WIDTH 16.8 % (11.5-15.5)
--- NOTE | 2023-10-22 07:00 | NUR ---
RECEIVED REPORT FROM CATHY RODRIGUEZ. PT IS RESTING IN BED AWAKE, CONFUSED. PT IS REORIENTABLE. ORIENTED TO NAME, , SITUATION. CANNOT GIVE DATE OR YEAR. VSS. BED ALARM ACTIVE AND FUNCTIONAL. PASTOR CATHETER IN PLACE AND DRAINING FROTHY YELLOW URINE. IV FLUIDS RUNNING AT 80 Ml/HR.
[2023-10-22 07:16] LABS: ALBUMIN 3.1 g/dL (3.2-5.0); BILIRUBIN, TOTAL 0.3 mg/dL (0.02-1.3); CREATININE 1.3 mg/dL (0.5-1.0); POTASSIUM 3.8 mmol/l (3.5-5.1); TOTAL PROTEIN 5.4 g/dL (6.3-8.2)
[2023-10-22 07:19] LABS: MAGNESIUM 2.6 mg/dL (1.6-2.3)
--- NOTE | 2023-10-22 08:50 | NUR ---
PT ATE APPROX 50% OF HER BREAKFAST. WAS ABLE TO SWALLOW PILLS WHOLE WITHOUT ASSISTANCE.
--- NOTE | 2023-10-22 19:15 | NUR ---
PT RESTING NO DISTRESS NOTED ON EXAM. PT REPORTS NO PAIN. PT ONLY ALERT TO SELF. PT IS REFUSING O2 SENSOR. HEART MONITOR SHOWS SR TO ST GOING IN AND OUT OF AFIB WITH A HISTORY OF IT ON ELIQUIS. PT HAS A PASTOR, NO KINKS IN THE CATHETER OR IN THE DRAINAGE BAG TUBING. IV ON LFA CHECKED AND FLUSHED WITHOUT ANY ISSUE. CALL LIGHT WITHIN REACH. PT STATED UNDERSTANDING ON HOW TO USE IT. PLAN OF CARE ONGOING.
[2023-10-23] VITALS (31 sets, daily range): BP systolic 119–152; BP diastolic 49–86
--- NOTE | 2023-10-23 00:30 | NUR ---
PT RESTLESS NOT SLEEPING STATING SHE SEES A SNAKE. PT REASURED SHE IS SAFE. CALL LIGHT WITHIN REACH.
--- NOTE | 2023-10-23 02:04 | NUR ---
PT RESTING NO SLEEPING BUT NOT RESTLESS LIKE BEFORE. CALL LIGHT WITHIN REACH.
--- NOTE | 2023-10-23 04:27 | NUR ---
PT WAS HELPED TO CHAIR WHILE BED LINENS WERE CHANGED WITH MINIMAL ASSISTANCE. PASTOR CATHETER WAS REMOVED, 600ML EMPTIED AND BRIEF WAS PLACED AFTER [facility] DONE. BED ALARM ON AND CALL LIGHT WITHIN REACH AFTER HELPING HER BACK TO BED.
--- NOTE | 2023-10-23 06:23 | NUR ---
PT IN AND OUT OF AFIB MOSTLY IN AFIB THROUGHOUT THE NIGHT AFTER MIDNIGHT.
[2023-10-23 07:07] LABS: BASO% 0.4 % (0-3); HEMATOCRIT 27.2 % (37.0-47.0); HEMOGLOBIN 8.5 g/dl (12.0-16.0); IMMATURE GRANULOCYTES 0.8 % (0.0-5.0); LYMPH% 10.3 % (15-41); MEAN CELL VOLUME 90.7 fL CALC (80.0-100.0); MEAN CORPUSCULAR HGB 28.3 pG CALC (26.0-32.0); MEAN CORPUSCULAR HGB CONC 31.3 g/dL CAL (32.0-36.0); MONO% 7.6 % (2-13); NEUT# 11.29 thou/uL (2.00-7.15); NEUT% 80.9 % (42-76)
--- NOTE | 2023-10-23 07:10 | NUR ---
pt awake in bed; no apparent distress noted; pt offers no complaints; assessment completed at this time; pt alert to person only; confusion noted; speech garbled; admits to right shoulder pain, will medicate; no n/v noted; resp even and unlabored; lungs clear/ diminished; skin color wnl; ra; hr irrg; strong pulses; no edema noted; abd soft with bs present; no bm noted per editorial writer; no urine to inspect at this time s/p bullock removal; brief cdi; pt admits to knowning when she needs to urinate; #22 to rfa patent with ivf infusing without complication; no redness or edema noted at site; plan of care/ meds explained; call light within reach; will continue to monitor
[2023-10-23 07:11] LABS: ALBUMIN 2.8 g/dL (3.2-5.0); CREATININE 1.2 mg/dL (0.5-1.0); MAGNESIUM 2.6 mg/dL (1.6-2.3); TOTAL PROTEIN 5.1 g/dL (6.3-8.2)
[2023-10-23 07:12] LABS: BILIRUBIN, TOTAL 0.5 mg/dL (0.02-1.3)
--- NOTE | 2023-10-23 08:10 | NUR ---
awake in bed eating breakfast; offers no complaints; iv intact and patent; will continue to monitor
--- NOTE | 2023-10-23 09:05 | NUR ---
Dr Hernandez present at bedside to assess pt and discuss plan of care; pt request to go home; pt able to states name and place at this time; will continue to monitor
[2023-10-23] MEDS ORDERED: TERAZOSIN1 MG PO ×2 (10:15→10:16)
[2023-10-23] MEDS ORDERED: OMNICEF300 M1 PO (10:15)
--- NOTE | 2023-10-23 10:15 | NUR ---
visitors x2 at bedside; ST present at bedside
[2023-10-23 10:42] LABS: CREATININE 1.3 mg/dL (0.5-1.0)
--- NOTE | 2023-10-23 11:10 | NUR ---
teleHealth consult completed with neuro
--- NOTE | 2023-10-23 12:04 | NUR ---
awake in bed; family x2 at bedside; no apparent distress noted; iv intact and patent; call light within reach; will continue to monitor
--- NOTE | 2023-10-23 13:04 | NUR ---
pt declined need to urinate s/p bullock removal earlier this am; bladder scanned for 135cc; brief cdi; will assist to bsc
--- NOTE | 2023-10-23 14:10 | NUR ---
assist to bsc to attempt to void; pt unable to void; MD made aware as well as bladder scan results; daughter at bedside; pt request to sit for a while longer; will continue to monitor
--- NOTE | 2023-10-23 15:28 | NUR ---
Dr Hernandez made aware of pt inability to urinate; order received to placed bullock and discharge home; HH has been order; LULÚ Casillas notified pt will be dcd with bullock catheter
--- NOTE | 2023-10-23 16:05 | NUR ---
16 Fr bullock catheter inserted under sterile technique x1 attempt; immed return of approx 200cc yellow urine; leg bag placed; daughter educated on catheter care; pt will be discharged with bullock/leg bag
--- NOTE | 2023-10-23 16:38 | NUR ---
Discharge instructions given. Patient verbalizes understanding of same. Discharged in stable condition via Wheelchair to Home with family. All belongings sent with pt.
[2023-10-27] MEDS ORDERED: LEVAQUIN750 M1 PO (08:36)
== END 2023-10-23 16:40 | DRG 871 ==
LOC: ED 11:03 → ED-I 14:40 → ED 15:39 → ICU 15:40
PROVIDERS: Family Medicine; Student in an Organized Health Care Education/Training Program; ADMIT Student in an Organized Health Care Education/Training Program; ATTEND Student in an Organized Health Care Education/Training Program
PROC: 0T9B70Z Drainage of Bladder with Drainage Device, Via Natural or Artificial Opening (ICD-10-PCS; principal; 2023-10-21)
PROC: 0T9B70Z Drainage of Bladder with Drainage Device, Via Natural or Artificial Opening (ICD-10-PCS; 2023-10-23)
DX: A41.9 Sepsis, unspecified organism (principal); G93.41 Metabolic encephalopathy; N17.9 Acute kidney failure, unspecified; N30.00 Acute cystitis without hematuria; R65.20 Severe sepsis without septic shock; R33.9 Retention of urine, unspecified; I11.0 Hypertensive heart disease with heart failure; I50.9 Heart failure, unspecified; E11.9 Type 2 diabetes mellitus without complications; J44.9 Chronic obstructive pulmonary disease, unspecified; I48.91 Unspecified atrial fibrillation; I25.10 Atherosclerotic heart disease of native coronary artery without angina pectoris; F17.200 Nicotine dependence, unspecified, uncomplicated; Z79.01 Long term (current) use of anticoagulants; Z86.79 Personal history of other diseases of the circulatory system
CPT/HCPCS: J0692; J3475

== ENCOUNTER 2024-10-29 11:54 | Observation (INO) | payer MEDICARE ==
[2024-10-29] VITALS (29 sets, daily range): BP systolic 100–153; BP diastolic 28–86
[~2024-10-29] VITALS: Ht 165.1 cm; Wt 72.1 kg
[~2024-10-29 11:54] MED LIST changes: +BACLOFEN10 MG PO; +LEVAQUIN750 M1 PO; +METOPROLOL TART50 MG PO; +NEURONTIN300 MG PO; +OMNICEF300 M1 PO; +OXYBUTYNIN CHLOR5 M2 PR; +PROTONIX40 M2 PO; +TERAZOSIN1 MG PO
[2024-10-29] MEDS ORDERED: SODIUM CHLORIDE 0.9% 1,000 ML IV ONE ×2 (13:38→13:45)
[2024-10-29 13:45] LABS: BASO% 0.6 % (0-3); EOS% 3.4 % (0-8); HEMATOCRIT 32.7 % (37.0-47.0); HEMOGLOBIN 10.2 g/dl (12.0-16.0); IMMATURE GRANULOCYTES 0.2 % (0.0-5.0); LYMPH% 20.3 % (15-41); MEAN CELL VOLUME 99.7 fL CALC (80.0-100.0); MEAN CORPUSCULAR HGB 31.1 pG CALC (26.0-32.0); MEAN CORPUSCULAR HGB CONC 31.2 g/dL CAL (32.0-36.0); MONO% 7.8 % (2-13); NEUT# 7.37 thou/uL (2.00-7.15); NEUT% 67.7 % (42-76); RED BLOOD COUNT 3.28 mill/uL (4.20-5.60); RED CELL DISTRI WIDTH 14.3 % (11.5-15.5)
[2024-10-29] MEDS ORDERED: MORPHINE SULFATE 4 MG/ML VIAL IV ONE ×2 (13:45→18:15)
[2024-10-29] MEDS ORDERED: Barium Sulfate (Readi-Cat 2 Berry) 450 ML/BTL PO ONE (13:45)
[2024-10-29] MEDS ORDERED: DIATRIZOATE MEGLUMINE & SODIUM 30 ML/BTL PO ONE (13:45)
[2024-10-29] MEDS ORDERED: Barium Sulfate (Readi-Cat 2 Banana) 450 ML/BTL PO ONE (13:45)
[2024-10-29] MEDS ORDERED: ONDANSETRON HCl 4 MG/2 ML SDV IV ONE (13:50)
[2024-10-29 14:33] LABS: ALBUMIN 3.4 g/dL (3.2-5.0); BILIRUBIN, TOTAL 0.4 mg/dL (0.02-1.3); CREATININE 1.4 mg/dL (0.5-1.0); POTASSIUM 4.3 mmol/l (3.5-5.1); TOTAL PROTEIN 5.8 g/dL (6.3-8.2)
[2024-10-29] MEDS ORDERED: CLINDAMYCIN PHOSPHATE 50 ML IV ONE (18:10)
[2024-10-29] MEDS ORDERED: LACTATED RINGER'S 1,000 ML IV ONE (18:10)
[2024-10-29] MEDS ORDERED: HYDROmorphone HCL 2 MG/AMP IV PRN (18:15)
[2024-10-29] MEDS ORDERED: LACTATED RINGER'S 1,000 ML IV PRN (18:15)
[2024-10-29] MEDS ORDERED: ONDANSETRON HCl 4 MG/2 ML SDV IV PRN (18:15)
[2024-10-29 19:10] LABS: BASO% 0.5 % (0-3); EOS% 3.5 % (0-8); HEMATOCRIT 31.8 % (37.0-47.0); HEMOGLOBIN 9.5 g/dl (12.0-16.0); IMMATURE GRANULOCYTES 0.2 % (0.0-5.0); LYMPH% 28.8 % (15-41); MEAN CELL VOLUME 103.9 fL CALC (80.0-100.0); MEAN CORPUSCULAR HGB CONC 29.9 g/dL CAL (32.0-36.0); MONO% 9.6 % (2-13); NEUT# 5.89 thou/uL (2.00-7.15); NEUT% 57.4 % (42-76); RED BLOOD COUNT 3.06 mill/uL (4.20-5.60); RED CELL DISTRI WIDTH 14.2 % (11.5-15.5)
[2024-10-30] VITALS (12 sets, daily range): BP systolic 94–171; BP diastolic 37–86
[2024-10-30 06:10] LABS: BASO% 0.4 % (0-3); EOS% 3.4 % (0-8); HEMATOCRIT 27.4 % (37.0-47.0); HEMOGLOBIN 8.3 g/dl (12.0-16.0); IMMATURE GRANULOCYTES 0.2 % (0.0-5.0); LYMPH% 18.6 % (15-41); MEAN CELL VOLUME 104.2 fL CALC (80.0-100.0); MEAN CORPUSCULAR HGB 31.6 pG CALC (26.0-32.0); MEAN CORPUSCULAR HGB CONC 30.3 g/dL CAL (32.0-36.0); MONO% 10.6 % (2-13); NEUT# 5.94 thou/uL (2.00-7.15); NEUT% 66.8 % (42-76); RED BLOOD COUNT 2.63 mill/uL (4.20-5.60); RED CELL DISTRI WIDTH 14.3 % (11.5-15.5)
[2024-10-30 06:24] LABS: ALBUMIN 2.8 g/dL (3.2-5.0); BILIRUBIN, TOTAL 0.3 mg/dL (0.02-1.3); CREATININE 1.3 mg/dL (0.5-1.0); MAGNESIUM 2.1 mg/dL (1.6-2.3); POTASSIUM 3.7 mmol/l (3.5-5.1)
[2024-10-30] MEDS ORDERED: METOPROLOL TARTRATE 5 MG/5 ML VIAL IV ONE (07:07)
[2024-10-30] MEDS ORDERED: NITROGLYCERIN 0.4 MG/TAB SL ONE (07:07)
[2024-10-30] MEDS ORDERED: METOPROLOL TARTRATE 5 MG/5 ML VIAL IV SCH (07:30)
[2024-10-30] MEDS ORDERED: SODIUM CHLORIDE 0.9% 1,000 ML IV PRN (07:30)
[2024-10-30] MEDS ORDERED: NITROGLYCERIN 0.4 MG/TAB SL SCH (07:30)
[2024-10-30] MEDS ORDERED: NITROGLYCERIN 0.4 MG/TAB SL PRN (07:45)
[2024-10-30] MEDS ORDERED: SODIUM CHLORIDE 0.9% 500 ML IV ONE ×2 (09:50→11:15)
[2024-10-30] MEDS ORDERED: DIGOXIN 0.5 MG/2 ML AMP IV SCH (10:30)
[2024-10-30] MEDS ORDERED: DIGOXIN 0.5 MG/2 ML AMP IV PRN (11:15)
[2024-10-30] MEDS ORDERED: METOPROLOL TARTRATE 5 MG/5 ML VIAL IV PRN (12:00)
== END 2024-10-30 13:47 | disposition short-term general hospital (02) ==
LOC: ED 11:54 → ED-I 17:50 → ED 18:10 → MS2 18:11
PROVIDERS: Emergency Medicine; Nurse Practitioner Family; ADMIT Internal Medicine; ATTEND Internal Medicine
PROC: 30233N1 Transfusion of Nonautologous Red Blood Cells into Peripheral Vein, Percutaneous Approach (ICD-10-PCS; principal; 2024-10-30)
PROC: 30233N1 Transfusion of Nonautologous Red Blood Cells into Peripheral Vein, Percutaneous Approach (ICD-10-PCS; 2024-10-30)
DX: K92.1 Melena (principal); I21.3 ST elevation (STEMI) myocardial infarction of unspecified site; I48.91 Unspecified atrial fibrillation; I13.0 Hypertensive heart and chronic kidney disease with heart failure and stage 1 through stage 4 chronic kidney disease, or unspecified chronic kidney disease; I50.22 Chronic systolic (congestive) heart failure; E11.22 Type 2 diabetes mellitus with diabetic chronic kidney disease; N18.30 Chronic kidney disease, stage 3 unspecified; J44.9 Chronic obstructive pulmonary disease, unspecified; K80.20 Calculus of gallbladder without cholecystitis without obstruction; F17.200 Nicotine dependence, unspecified, uncomplicated; Z79.01 Long term (current) use of anticoagulants; Z88.0 Allergy status to penicillin; Z88.2 Allergy status to sulfonamides
CPT/HCPCS: G0378; J0736; J0744; J1160; J1171; J1836; J2405; P9016

== ENCOUNTER 2024-12-02 08:37 | Emergency (ER) | payer MEDICARE ==
[2024-12-02] VITALS (15 sets, daily range): BP systolic 151–183; BP diastolic 54–77
[~2024-12-02] VITALS: Ht 165.1 cm; Wt 63.5 kg
[2024-12-02 09:29] LABS: URINE BILIRUBIN - DIPSTICK Negative (NEGATIVE); URINE BLOOD DIPSTICK Negative (NEGATIVE); URINE GLUCOSE - DIPSTICK Negative (NEGATIVE); URINE KETONE Negative (NEGATIVE); URINE NITRITE - DIPSTICK Negative (Negative); URINE PH 6.5 (4.5-8.0); URINE PROTEIN - DIPSTICK 30 mg/dL (NEG-TRACE); URINE SPECIFIC GRAVITY 1.015; URINE UROBILINOGEN - DIPSTICK 0.2 E.U./dL (0.2)
[2024-12-02 09:37] LABS: BASO% 0.6 % (0-3); HEMOGLOBIN 10.1 g/dl (12.0-16.0); IMMATURE GRANULOCYTES 0.1 % (0.0-5.0); LYMPH% 16.3 % (15-41); MEAN CORPUSCULAR HGB 28.6 pG CALC (26.0-32.0); MEAN CORPUSCULAR HGB CONC 30.1 g/dL CAL (32.0-36.0); MONO% 7.8 % (2-13); NEUT# 7.9 thou/uL (2.00-7.15); NEUT% 71.2 % (42-76); RED BLOOD COUNT 3.53 mill/uL (4.20-5.60); RED CELL DISTRI WIDTH 15.7 % (11.5-15.5)
[2024-12-02 09:38] LABS: HEMATOCRIT 33.5 % (37.0-47.0); MEAN CELL VOLUME 94.9 fL CALC (80.0-100.0)
[2024-12-02 09:45] LABS: URINE COLOR Yellow; URINE LEUK ESTERASE Moderate (NEGATIVE)
[2024-12-02 09:48] LABS: URINE BACTERIA MODERATE hpf; URINE EPITHELIAL CELLS MODERATE EPI/hpf (0-FEW); URINE WBC 20-50 WBC/hpf (0-5)
[2024-12-02 09:53] LABS: CREATININE 1.3 mg/dL (0.5-1.0); POTASSIUM 3.9 mmol/l (3.5-5.1)
[2024-12-02 09:54] LABS: ALBUMIN 3.8 g/dL (3.2-5.0); BILIRUBIN, TOTAL 0.5 mg/dL (0.02-1.3); TOTAL PROTEIN 6.5 g/dL (6.3-8.2)
[2024-12-02] MEDS ORDERED: KEFLEX500 MG PO (12:44)
== END 2024-12-02 13:28 | disposition home or self-care (01) ==
LOC: ED 08:37
PROVIDERS: Family Medicine
DX: I63.9 Cerebral infarction, unspecified (principal); R47.02 Dysphasia; R13.10 Dysphagia, unspecified; G83.21 Monoplegia of upper limb affecting right dominant side; R29.704 NIHSS score 4; I11.0 Hypertensive heart disease with heart failure; I50.9 Heart failure, unspecified; N39.0 Urinary tract infection, site not specified; E11.9 Type 2 diabetes mellitus without complications; I48.91 Unspecified atrial fibrillation; J44.9 Chronic obstructive pulmonary disease, unspecified; F17.200 Nicotine dependence, unspecified, uncomplicated